=== PATIENT | male | born 1985 | race Caucasian/White ===

== ENCOUNTER 2022-12-05 02:00 | Inpatient (IN) | payer MEDICAID ==
[2022-12-04 18:00] VITALS: BP 100/55
[~2022-12-05] VITALS: Ht 175.3 cm; Wt 72.7 kg
[2022-12-05] MEDS ORDERED: morphine 4 MG/ML inj SYRINge IV ONE (02:50)
[2022-12-05] MEDS ORDERED: normal saline 1000ML IV soln IVB ONE (02:50)
[2022-12-05] MEDS ORDERED: iohexol 300mg/ml 100ml inj. ONE (03:28)
--- NOTE | 2022-12-05 03:30 | NUR ---
pt refusing morphine at this time. pt states will let this rn know if pain increases and desires medication
--- NOTE | 2022-12-05 03:30 | NUR ---
pt to ct
[2022-12-05 03:37] LABS: BASOPHILS % (AUTO) 0.2 % (0-1); EOSINOPHILS % (AUTO) 0.4 % (0-6); HEMATOCRIT 37.1 % (42.0-52.0); HEMOGLOBIN 12.4 g/dl (14.0-17.9); LYMPHOCYTES # (AUTO) 1.3 X10'3 (1.1-4.8); LYMPHOCYTES % (AUTO) 12.5 % (21-51); MEAN CORPUSCULAR HEMOGLOBIN 30.2 PG (27.0-31.0); MEAN CORPUSCULAR HGB CONC 33.3 g/dL (33.0-36.5); MEAN CORPUSCULAR VOLUME 90.7 FL (78-98); MEAN PLATELET VOLUME 8.1 FL (7.4-10.4); MONOCYTES # (AUTO) 0.7 X10'3 (0-0.9); MONOCYTES % (AUTO) 6.6 % (2-12); NEUTROPHILS # (AUTO) 8.6 X10'3 (1.8-7.7); NEUTROPHILS % (AUTO) 80.3 % (42-75); PLATELET COUNT 245 X10'3 (140-440); RED CELL DISTRIBUTION WIDTH 13.4 % (11.5-14.5); WHITE BLOOD COUNT 10.8 X10'3 (4.5-11.0)
[2022-12-05 03:50] LABS: ALANINE AMINOTRANSFERASE 21 U/L (12-78); ALBUMIN 4.1 G/DL (3.4-5.0); ALBUMIN/GLOBULIN RATIO 1.6 (1.1-1.5); ALKALINE PHOSPHATASE 73 IU/L (46-116); ANION GAP 5 (8-16); ASPARTATE AMINO TRANSFERASE 13 U/L (10-37); BILIRUBIN,TOTAL 0.2 MG/DL (0.1-1.0); BLOOD UREA NITROGEN 22 MG/DL (7-18); BUN/CREATININE RATIO 19.5 (10.0-20.0); CALCIUM 8.7 MG/DL (8.5-10.1); CHLORIDE 106 MMOL/L (99-107); CREATININE 1.13 MG/DL (0.60-1.10); GLUCOSE 130 MG/DL (70-104); POTASSIUM 3.8 MMOL/L (3.5-5.1); SODIUM 138 MMOL/L (135-145); TOTAL CARBON DIOXIDE 26.8 MMOL/L (24-32); TOTAL PROTEIN 6.6 G/DL (6.4-8.2); eGFR 73 ML/MIN
[2022-12-05 03:53] LABS: ETHANOL < 0.010 GM/DL (0.0-0.010); MAGNESIUM 1.9 MG/DL (1.5-2.4)
[2022-12-05] MEDS ORDERED: HYDR-3965 PO ×2 (05:58)
[2022-12-05] MEDS ORDERED: HYDROcodone/acetaminophen 5mg/325mg tablet PO ONE (07:15)
[2022-12-05] MEDS ORDERED: morphine 2 MG/ML inj. syringe IV PRN ×2 (08:25)
[2022-12-05] MEDS ORDERED: ondansetron/PF 4mg/2ml inj IV PRN (08:25)
[2022-12-05] MEDS ORDERED: HYDROcodone/acetaminophen 5mg/325mg tablet PO PRN (08:25)
[2022-12-05] MEDS ORDERED: bisacodyl 10mg suppository rectal RC PRN (08:25)
[2022-12-05] MEDS ORDERED: acetaminophen 325mg tablet PO PRN ×2 (08:25)
[2022-12-05] MEDS ORDERED: diphenhydrAMINE 25mg capsule PO PRN (08:25)
[2022-12-05] MEDS: normal saline 1000ml 1,000 ML IV SCH ×2 (08:25→18:25)
[2022-12-05] MEDS ORDERED: magnesium 4gm in 100ml NS 100 ML IV PRN (08:25)
[2022-12-05] MEDS ORDERED: potassium Cl 40MEQ/1/2NS 520ml 520 ML IV PRN (08:25)
[2022-12-05] MEDS ORDERED: magnesium hydroxide 30ml (MOM) UD suspension PO PRN (08:25)
[2022-12-05] MEDS ORDERED: acetaminophen 650mg rectal suppository RC PRN (08:25)
[2022-12-05] MEDS ORDERED: magnesium Cl slow-release 64mg tablet PO PRN (08:25)
[2022-12-05] MEDS ORDERED: mag hydrox/Alum hydrox/simeth 30ml oral suspension PO PRN (08:25)
[2022-12-05] MEDS ORDERED: magnesium 2GM in 50ml NS 50 ML IV PRN (08:25)
[2022-12-05] MEDS ORDERED: potassium Cl 20 mEq SR tablet PO PRN ×2 (08:25)
[2022-12-05 08:54] LABS: HEMOGLOBIN A1C 5.2 % (4.5-6.2)
[2022-12-05] MEDS ORDERED: NO HOME MEDS (12:54)
--- NOTE | 2022-12-05 13:04 | NUR ---
called to give report, nurse unavailable, will call back
[2022-12-05] MEDS: HYDROcodone/acetaminophen 10/325mg tab PO PRN ×2 (13:51→19:20)
[2022-12-05] MEDS ORDERED: wheelchair (15:24)
--- NOTE | 2022-12-05 18:26 | NUR ---
Problems reprioritized. Patient report given, questions answered & plan of care reviewed with KRISHNA Zazueta.
--- NOTE | 2022-12-05 18:39 | NUR ---
Patient in room [facility] 4008. I have received report from KRISHNA Chung and had the opportunity to ask questions and assume patient care.
[2022-12-05] MEDS: K and/or MAG REPLACEMENT MC SCH (19:11)
[2022-12-05] MEDS: heparin, porcine 5000 units/ml vial SQ SCH (19:19)
[2022-12-05] MEDS: docusate sod 100mg capsule PO SCH (19:20)
--- NOTE | 2022-12-05 21:00 | NUR ---
[employer] BPM CONSULTANT documentation: I have reviewed and agree with all interventions, assessments performed and documented by Carlita Genao [employer] BPM CONSULTANT.
[2022-12-05 22:00] VITALS: BP 98/62
[2022-12-06] MEDS: HYDROcodone/acetaminophen 10/325mg tab PO PRN (01:49)
[2022-12-06] MEDS: normal saline 1000ml 1,000 ML IV SCH ×2 (04:39→07:16)
[2022-12-06 06:00] VITALS: BP 108/61
[2022-12-06 06:25] LABS: BASOPHILS % (AUTO) 0.3 % (0-1); EOSINOPHILS # (AUTO) 0.1 X10'3 (0-0.9); EOSINOPHILS % (AUTO) 2.1 % (0-6); HEMATOCRIT 35.5 % (42.0-52.0); HEMOGLOBIN 11.8 g/dl (14.0-17.9); LYMPHOCYTES # (AUTO) 1.7 X10'3 (1.1-4.8); LYMPHOCYTES % (AUTO) 29.3 % (21-51); MEAN CORPUSCULAR HEMOGLOBIN 30.1 PG (27.0-31.0); MEAN CORPUSCULAR HGB CONC 33.2 g/dL (33.0-36.5); MEAN CORPUSCULAR VOLUME 90.7 FL (78-98); MEAN PLATELET VOLUME 7.8 FL (7.4-10.4); MONOCYTES # (AUTO) 0.5 X10'3 (0-0.9); MONOCYTES % (AUTO) 9.2 % (2-12); NEUTROPHILS # (AUTO) 3.5 X10'3 (1.8-7.7); NEUTROPHILS % (AUTO) 59.1 % (42-75); PLATELET COUNT 199 X10'3 (140-440); RED BLOOD COUNT 3.92 X10'6 (4.70-6.10); RED CELL DISTRIBUTION WIDTH 13.3 % (11.5-14.5); WHITE BLOOD COUNT 5.8 X10'3 (4.5-11.0)
--- NOTE | 2022-12-06 06:26 | NUR ---
Problems reprioritized. Patient report given, questions answered & plan of care reviewed with DALTON Bass.
[2022-12-06 06:50] LABS: ALANINE AMINOTRANSFERASE 19 U/L (12-78); ALBUMIN 3.5 G/DL (3.4-5.0); ALBUMIN/GLOBULIN RATIO 1.3 (1.1-1.5); ALKALINE PHOSPHATASE 60 IU/L (46-116); ANION GAP 3 (8-16); ASPARTATE AMINO TRANSFERASE 10 U/L (10-37); BILIRUBIN,TOTAL 0.5 MG/DL (0.1-1.0); BLOOD UREA NITROGEN 11 MG/DL (7-18); BUN/CREATININE RATIO 12.2 (10.0-20.0); CALCIUM 8.2 MG/DL (8.5-10.1); CHLORIDE 105 MMOL/L (99-107); CHOL/HDL RATIO 3.3 (0.00-4.99); CHOLESTEROL 152 MG/DL (0-200); GLUCOSE 97 MG/DL (70-104); HDL CHOLESTEROL 46 MG/DL (35-60); LDL CHOLESTEROL 86 MG/DL (50-100); MAGNESIUM 1.9 MG/DL (1.5-2.4); PHOSPHORUS 3.4 MG/DL (2.3-4.5); POTASSIUM 3.9 MMOL/L (3.5-5.1); SODIUM 137 MMOL/L (135-145); TOTAL CARBON DIOXIDE 29.2 MMOL/L (24-32); TOTAL PROTEIN 6.1 G/DL (6.4-8.2); TRIGLYCERIDES 76 MG/DL (20-135); eGFR > 90 ML/MIN
--- NOTE | 2022-12-06 07:17 | NUR ---
Patient in room [facility] 4008. I have received report from DALTON Zazueta and had the opportunity to ask questions and assume patient care.
[2022-12-06] MEDS: K and/or MAG REPLACEMENT MC SCH (07:55)
[2022-12-06] MEDS: docusate sod 100mg capsule PO SCH (07:55)
[2022-12-06] MEDS: heparin, porcine 5000 units/ml vial SQ SCH (07:56)
[2022-12-06] MEDS ORDERED: HYDR-3965 PO (12:45)
--- NOTE | 2022-12-06 15:36 | NUR ---
GRAIN ELEVATOR OPERATOR documentation: I have reviewed and agree with all interventions, assessments performed and documented by Shelia Prather LVN .
--- NOTE | 2022-12-06 17:15 | NUR ---
Patient stable and appropriate for discharge. Slide board and wheelchair brought to bedside for patient to go home with. All instructions gone over with patient. IV removed canula intact. Patient was accompanied by mother to lobby and taken home in private vehicle.
== END 2022-12-06 17:00 | disposition home or self-care (01) | DRG 342 ==
LOC: ER 02:01 → ED HOLD 08:24 → ORTHO 4S 14:20
PROVIDERS: ADMIT Family Medicine; ATTEND Family Medicine
PROC: 2W3QX1Z Immobilization of Right Lower Leg using Splint (ICD-10-PCS; principal; 2022-12-05)
PROC: 2W3RX1Z Immobilization of Left Lower Leg using Splint (ICD-10-PCS; 2022-12-05)
PROC: BW211ZZ Computerized Tomography (CT Scan) of Abdomen and Pelvis using Low Osmolar Contrast (ICD-10-PCS; 2022-12-05)
DX: S92.001A Unspecified fracture of right calcaneus, initial encounter for closed fracture (principal); S92.002A Unspecified fracture of left calcaneus, initial encounter for closed fracture; W17.89XA Other fall from one level to another, initial encounter; Y93.89 Activity, other specified; Y92.89 Other specified places as the place of occurrence of the external cause; Y99.8 Other external cause status; Z87.891 Personal history of nicotine dependence
CPT/HCPCS: 36415; 70450; 71045; 71260; 72125; 73610; 73650; 73700; 74177; 80053; 80061; 80320; 83036; 83735; 84100; 84443; 84484; 85025; 85610; 86885; 86900; 86901; 87081; 93005; 97161; 97530; 99285; A6446; A6449; G0378; J1644; J2270; J2405; J3490; J7030; Q9967